=== PATIENT | female | born 1980 | race Caucasian/White ===

== ENCOUNTER → 2016-07-04 | Outpatient (CLI) | payer BC ==
[~2016-07-04] MED LIST: CLARITIN 1010 MG/TAB PO; IBU800 M1 PO; LEVAQUIN 750MG750 M1 PO; MOTRIN 600600 MG/TAB PO; NASONEX SPRAY17 GM NS; PERCOCET 325 MG1 TA2 PO; PLAQUENIL 200M200 MG PO; PRENATAL1 TA1 PO; STOOL SOFTENER100 M2 PO
== END ==
LOC: COL.RAD 08:43
DX: M79.671 Pain in right foot (principal)
CPT/HCPCS: J3301; Q9967

== ENCOUNTER 2021-03-18 20:04 | Observation (INO) | payer BC ==
[~2021-03-18] VITALS: Ht 175.3 cm; Wt 90.2 kg
[2021-03-18 21:53] LABS: COLLECTION METHOD CLEAN CATCH
[2021-03-18 21:59] LABS: PH 5 (5-8); SQUAMOUS EPITHELIAL 0-2 /hpf; URINE APPEARANCE Clear; URINE BACTERIA Rare /hpf; URINE BILIRUBIN Negative (NEGATIVE); URINE BLOOD Negative (NEGATIVE); URINE COLOR Yellow; URINE GLUCOSE Negative (NEGATIVE); URINE KETONE 1+ (NEGATIVE); URINE LEUKOCYTE ESTERASE Negative (NEGATIVE); URINE NITRATE Negative (NEGATIVE); URINE PROTEIN(semi-quant) Negative (NEGATIVE); URINE RBC 0-2 /hpf; URINE UROBILINOGEN Negative (NEGATIVE)
[2021-03-18 22:03] LABS: BASO % 0.2 % (0.0-2.0); EOS % 0.1 % (0-4.0); GRAN % 84.6 % (42.2-75.2); HEMATOCRIT 41.4 % (37.0-47.0); HEMOGLOBIN 14.4 g/dl (12.5-16.0); LYMPH # 1.3 K/mm3 (1.2-3.4); LYMPH % 8.1 % (20.0-51.0); MEAN CELL VOLUME 87 fl (80.0-100.0); MEAN CORPUSCULAR HEMOGLOBIN 30 pg (27.0-31.0); MEAN CORPUSCULAR HGB CONC 35 g/dl (33.0-37.0); MEAN PLATELET VOLUME 11.2 fl (7.4-10.4); MONO # 1.1 K/mm3 (0.1-0.6); MONO % 6.6 % (1.7-9.3); PLATELET COUNT 198 K/mm3 (130-400); RED BLOOD COUNT 4.78 M/mm3 (4.10-5.30); REDCELL DISTRIBUTION WIDTH-CV 12.2 % (11.5-14.5)
[2021-03-18 22:30] LABS: ALBUMIN 4.4 gm/dL (3.5-5.0); BILIRUBIN,TOTAL 1.2 mg/dL (0.2-1.2); C-REACTIVE PROTEIN 6.54 mg/dL (0.00-0.50); CALCIUM 9.8 mg/dL (8.4-10.2); CREATININE, serum 0.87 mg/dL (0.57-1.11); POTASSIUM 3.8 mmol/L (3.5-4.5); TOTAL PROTEIN 7.6 gm/dL (6.2-8.1)
[2021-03-19] VITALS (11 sets, daily range): BP systolic 120–132; BP diastolic 64–78; PULSE 72–88; TEMP 98.3–101
--- NOTE | 2021-03-19 01:02 | NUR ---
Patient care, medication administration and nursing documentation occurred during a Daylight Savings Time Change.
--- NOTE | 2021-03-19 01:48 | NUR ---
ADMISSION QUESTIONS COMPLETED. PT SHOWERED AND IS READY FOR SLEEP. RATES RLQ PAIN 3/10. DOES HAVE A SLIGHT HEADACHE. IVF INFUSING TO RT AC SITE WITHOUT REDNESS OR SWELLING. ORIENTED TO BED AND ROOM.
--- NOTE | 2021-03-19 04:30 | NUR ---
PT DENIES PAIN.
--- NOTE | 2021-03-19 08:00 | NUR ---
PATIENT IS A&O. NOTED TEMP OF 100.8, ALL OTHER VSS. NOTED FLUSH CHEEKS AND RED NECK. PATIENT REPORTS SHE FEELS WARM AND GETS RED EASILY. DID NOT WANT PATIENT TO GET PO TYLENOL DUE TO PENDING SURGERY. PATIENT SCHEDULED FOR SURGERY THIS AM. CONSENT SIGNED & ON CHART. AT BEDSIDE. NPO. IV FLUIDS INFUSING INTO RIGHT AC IV. NO C/O N/V. PATIENT REPORTS PAIN IS TOLERABLE. HEAD TO TOE ASSESSMENT COMPLETE. NO OTHER NEEDS. CALL LIGHT IN REACH.
--- NOTE | 2021-03-19 10:45 | NUR ---
PATIENT BACK IN ROOM POST OP. A&O. TEMP OF 101.4 REPORTED BY PACU, ALL OTHER VSS. ABD LAP SITES ARE CD&I. NO C/O N/V. IV FLUIDS INFUSING INTO RIGHT AC IV. HEAD TO TOE ASSESSMENT WNL. AT BEDSIDE. PATIENT ORDERING LUNCH.
[2021-03-19] MEDS ORDERED: NORCO 325 MG-51 TAB PO (14:53)
--- NOTE | 2021-03-19 15:30 | NUR ---
PATIENT DISCHARGING HOME VIA AMBULATORY TO PERSONAL VEHICLE WITH . GAVE DISCHARGE INSTRUCTIONS, E-SCRIPT SENT, AND F/U APT DISCUSSED. ANSWERED QUESTIONS/CONCERNS. IV DC'D AND COVERED WITH GAUZE & COBAN. PATIENT IS DRESSED, PACKED AND DISCHARGED.
== END 2021-03-19 15:30 | disposition home or self-care (01) ==
LOC: COL.ER 20:04 → SURG 03-19 00:53
PROVIDERS: Emergency Medicine; ADMIT Surgery
DX: K35.80 Unspecified acute appendicitis (principal); M35.00 Sjogren syndrome, unspecified; F17.210 Nicotine dependence, cigarettes, uncomplicated; Z79.899 Other long term (current) drug therapy
CPT/HCPCS: G0378; J0330; J0694; J1100; J1885; J2270; J2405; J2543; J2704; J3010; J7030; J7120; Q9967

== ENCOUNTER → 2023-07-02 | Outpatient (CLI) | payer OTHER ==
[~2023-07-02] MED LIST changes: +NORCO 325 MG-51 TAB PO
== END ==
LOC: MC.RAD 10:17
DX: Z12.31 Encounter for screening mammogram for malignant neoplasm of breast (principal)

== ENCOUNTER 2023-12-08 16:16 | Emergency (ER) | payer OTHER ==
[~2023-12-08] VITALS: Ht 175.3 cm; Wt 100.0 kg
[2023-12-08 16:20] VITALS: TEMP 98.5
[2023-12-08 17:05] LABS: BASO # 0.1 K/mm3 (0.0-0.2); BASO % 0.9 % (0.0-2.0); EOS # 0.1 K/mm3 (0.0-0.7); EOS % 2.1 % (0.0-4.0); GRAN % 52.6 % (42.2-75.2); HEMATOCRIT 41.2 % (37.0-47.0); LYMPH % 34.9 % (20.0-51.0); MEAN CELL VOLUME 89 fl (80.0-100.0); MEAN CORPUSCULAR HEMOGLOBIN 30 pg (27-31); MEAN CORPUSCULAR HGB CONC 34 g/dl (33.0-37.0); MEAN PLATELET VOLUME 10.7 fl (7.4-10.4); MONO # 0.5 K/mm3 (0.1-0.6); MONO % 9.1 % (1.7-9.3); PLATELET COUNT 199 K/mm3 (130-400); RED BLOOD COUNT 4.63 M/mm3 (4.10-5.30); REDCELL DISTRIBUTION WIDTH-CV 12.3 % (11.5-14.5)
[2023-12-08 17:18] LABS: ALANINE AMINOTRANSFERASE 77 U/L (0-55); ALKALINE PHOSPHATASE 57 U/L (40-150); ANION GAP 10 mmol/L (7-16); AST,SGOT 39 U/L (5-34); BILIRUBIN,TOTAL 0.6 mg/dL (0.2-1.2); BLOOD UREA NITROGEN 9 mg/dL (7-19); CALCIUM 9.4 mg/dL (8.4-10.2); CHLORIDE 107 mEq/L (98-107); CREATININE, serum 0.98 mg/dL (0.57-1.11); GLUCOSE 78 mg/dL (70-99); POTASSIUM 3.9 mEq/L (3.5-4.5); SODIUM 142 mEq/L (136-145); TOTAL PROTEIN 6.8 g/dl (6.2-8.1)
[2023-12-08 17:25] LABS: TROPONIN-I < 0.010 ng/mL (0.00-0.033)
[2023-12-08 18:55] VITALS: BP 109/83; PULSE 67
== END 2023-12-08 19:00 | disposition home or self-care (01) ==
LOC: COL.ER 16:16
PROVIDERS: Physician Assistant
DX: R00.2 Palpitations (principal)